=== PATIENT | female | born 1995 | race Caucasian/White ===

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

== ENCOUNTER 2017-08-20 20:04 | Emergency (ER) | payer OTHER, MEDICAID ==
--- NOTE | 2017-08-20 21:18 | EDPHY ---
H & P Time Seen by Provider: 08/20/17 21:16 HPI/ROS: CHIEF COMPLAINT: Right knee pain HISTORY OF PRESENT ILLNESS: Right knee pain. Patient is a 22-year-old female with no significant past medical history who reports that she was running and tripped and fell on her right knee. She reports landing on her patella. She is able to stand and walk on the affected extremity were appeared of time but has since developed worsening pain. She denies any numbness or weakness distally. She does report pain with range of motion of the knee. She takes no blood thinners or other prescribed medication. REVIEW OF SYSTEMS: Constitutional: No fever, no chills. Eyes: No discharge. ENT: No sore throat. Cardiovascular: No chest pain, no palpitations. Respiratory: No cough, no shortness of breath. Gastrointestinal: No abdominal pain, no vomiting. Genitourinary: No hematuria. Musculoskeletal: No back pain. Skin: No rashes. Neurological: No headache. Smoking Status: Never smoked Physical Exam: General Appearance: Alert and no distress. Eyes: Pupils equal and round no injection. Respiratory: Chest is nontender, lungs are clear to auscultation. Cardiac: regular rate and rhythm. Gastrointestinal: Abdomen is soft and nontender, no masses, bowel sounds normal. Musculoskeletal: Neck is supple and nontender. Tenderness to right patella without ecchymosis, swelling, joint effusion or deformity. Neurovascular intact distal to the right knee. Limited range of motion of the right knee secondary to pain. Extremities have full range of motion and are nontender. Skin: No rashes or lesions. Constitutional: Initial Vital Signs Temperature (C) 37.2 C 08/20/17 20:13 Heart Rate 78 08/20/17 20:13 Respiratory Rate 20 08/20/17 20:13 Blood Pressure 149/75 H 08/20/17 20:13 O2 Sat (%) 94 08/20/17 20:13 O2 Delivery Mode Room Air Allergies/Adverse Reactions: No Known Allergies Allergy (Unverified 08/20/17 20:13) Home Medications: Medication Instructions Recorded NK [No Known Home Meds] 08/20/17 Medical Decision Making - Diagnostics Imaging Results: Imaging Impressions Knee X-Ray 08/20/17 20:33 Impression: Negative for fracture. ED Course/Re-evaluation: Patient here traumatic right knee pain with normal-appearing knee and imaging showing no acute bony abnormality or joint effusion. She is neurovascular intact distally. She is placed in a knee immobilizer and given crutches as it was difficult for to bear weight. She was given orthopedic referral in case she does not improve with conservative treatment. No evidence of neurovascular injury, fracture, dislocation. Patient seen under the direct supervision of doctor Santos - Data Points Medications Given: Discontinued Medications Ibuprofen (Motrin) 600 mg PO EDNOW ONE Stop: 08/20/17 21:43 Last Admin: 08/20/17 21:44 Dose: 600 mg Departure - Departure Disposition: Home, Routine, Self-Care Clinical Impression: Contusion, knee Condition: Good Instructions: Contusion in Adults (ED) Additional Instructions: Follow-up with a primary care doctor in 5 7 days via persistent pain. Let pain be her guide with return to activity. Referrals: Felipa Abbott MD [Medical Doctor] - As per Instructions NONE *PRIMARY CARE P,. [Primary Care Provider] - As per Instructions Dallas Peña MD [Medical Doctor] - As per Instructions
[2017-08-20] MEDS ORDERED: IBUPROFEN 600 MG TAB PO ONE (21:42)
[2017-08-20 22:06] VITALS: BP 127/78
== END 2017-08-20 22:06 | disposition home or self-care (01) ==
DX: S80.01XA Contusion of right knee, initial encounter (principal); W01.0XXA Fall on same level from slipping, tripping and stumbling without subsequent striking against object, initial encounter; Y99.8 Other external cause status; Y93.02 Activity, running
CPT/HCPCS: L1830